=== PATIENT | male | born 1950 | race Caucasian/White ===

== ENCOUNTER 2021-07-05 15:37 | Emergency (ER) | payer MEDICARE ==
[2021-07-05] MEDS ORDERED: SODIUM CHLORIDE 0.9% 50 ML IVPB ONE (21:30)
[2021-07-05] MEDS ORDERED: CASIRIVIMAB/IMDEVIMAB (EUA) 1,200 MG in SODIUM CHLORIDE 0.9% 100 ML IVPB ONE (22:00)
--- NOTE | 2021-07-05 22:08 | ED ---
URI HPI - General Chief Complaint: Upper Respiratory Infection Stated Complaint: Covid+/Wants Antibodies Time Seen by Provider: 07/05/21 21:07 Source: patient, RN notes reviewed Mode of arrival: ambulatory Limitations: no limitations - History of Present Illness Initial Comments: Patient is a 71-year-old male presenting to the emergency department requesting covid antibodies. Patient states he has been sick for the past 9-10 days, he tested positive about a week ago. He denies history of asthma or COPD. He states he has been able to eat and drink okay, he does have a dry cough. No fevers or chills, he states he has had those in the past. Patient states he has had many intermittent symptoms, no nausea or vomiting today, no diarrhea. Denies any chest pain, some mild shortness of breath when he gets coughing. Patient has no further complaints. His vital signs are stable upon arrival. - Related Data Allergies Allergy/AdvReac Type Severity Reaction Status Date / Time No Known Allergies Allergy Verified 07/05/21 16:49 Review of Systems ROS Statement: Those systems with pertinent positive or pertinent negative responses have been documented in the HPI. ROS Other: All systems not noted in ROS Statement are negative. Past Medical History Past Medical History: No Reported History History of Any Multi-Drug Resistant Organisms: None Reported Additional Past Surgical History / Comment(s): Abd Past Psychological History: No Psychological Hx Reported Smoking Status: Never smoker Past Alcohol Use History: None Reported Past Drug Use History: None Reported General Exam - General Exam Comments Initial Comments: GENERAL: Patient is well-developed and well-nourished. Patient is nontoxic and in no acute distress. HEAD: Atraumatic, normocephalic. EYES: Pupils equal round and reactive to light, extraocular movements intact, sclera anicteric, conjunctiva are normal. Eyelids were unremarkable. ENT: Oropharynx clear without exudates. Moist mucous membranes. NECK: Normal range of motion, supple without lymphadenopathy or JVD. LUNGS: Unlabored respirations. Breath sounds clear to auscultation bilaterally and equal. No wheezes rales or rhonchi. HEART: Regular rate and rhythm without murmurs, rubs or gallops. ABDOMEN: Soft, nontender, normoactive bowel sounds. No guarding, no rebound. No masses appreciated. MUSCULOSKELETAL: Normal extremities with adequate strength and normal range of motion, no pitting or edema. No clubbing or cyanosis. NEUROLOGICAL: Patient is alert and oriented x 3. PSYCH: Normal mood, normal affect. SKIN: Warm, Dry, normal turgor, no rashes or lesions noted. Limitations: no limitations Course Vital Signs 07/05/21 07/05/21 07/05/21 16:46 21:49 22:10 Temperature 99.2 F Pulse Rate 89 89 Respiratory 22 20 20 Rate Blood Pressure 142/94 145/77 O2 Sat by Pulse 96 95 Oximetry Medical Decision Making - Medical Decision Making Patient is a 71-year-old male here requesting Covid monoclonal antibodies. He has been sick for the past 9-10 days, tested positive about a week ago. His vital signs are stable, his exam is unremarkable. He does qualify. Patient received this medication without adverse side effects. His vital signs remained stable. He is stable for discharge. He'll follow up with his primary care. Disposition Clinical Impression: COVID-19 Disposition: HOME SELF-CARE Condition: Stable Instructions (If sedation given, give patient instructions): Coronavirus Dis ease 2019 (COVID-19) Additional Instructions: Please return to the Emergency Department if symptoms worsen or any other concerns. May take Tylenol or Motrin for any fevers or body aches. Follow-up with your primary care. Is patient prescribed a controlled substance at d/c from ED?: No Referrals: Mateo Richards DO [Primary Care Provider] - 1-2 days Time of Disposition: 23:09
[2021-07-05 22:11] VITALS: RESP 20
[2021-07-05 23:30] VITALS: BP 138/74; PULSE 77; TEMP 97.4
== END 2021-07-05 23:28 | disposition home or self-care (01) ==
LOC: EC 15:37
DX: U07.1 COVID-19 (principal)
CPT/HCPCS: 99284 ×2; M0243; Q0243